=== PATIENT | female | born 1950 | race Caucasian/White ===

== ENCOUNTER 2022-05-20 12:01 | Emergency (ER) | payer BC, MEDICARE | END 2022-05-20 14:45 | disposition home or self-care (01) | LOC: JD.ED 12:01 | DX: S52.601A Unspecified fracture of lower end of right ulna, initial encounter for closed fracture (principal); W23.0XXA Caught, crushed, jammed, or pinched between moving objects, initial encounter | CPT/HCPCS: 29125; 73090-26-RT; 73090-RT; 99283 ==

== ENCOUNTER 2022-05-27 13:48 | Emergency (ER) | payer BC, MEDICARE | END 2022-05-27 16:22 | disposition home or self-care (01) | LOC: JD.ED 13:48 | DX: R55 Syncope and collapse (principal) | CPT/HCPCS: 36415; 80053; 85025; 93005; 99284 ==

== ENCOUNTER 2022-06-08 15:00 | Emergency (ER) | payer BC, MEDICARE | END 2022-06-08 17:38 | disposition home or self-care (01) | LOC: JD.ED 15:00 | DX: R04.0 Epistaxis (principal) | CPT/HCPCS: 30901; 99283 ==

== ENCOUNTER 2022-07-14 17:15 | Emergency (ER) | payer BC, MEDICARE ==
[2022-07-14] MEDS ORDERED: Oxymetazoline 0.05% Nasal Spray 30 ML Bottle NAS ONE (17:41)
== END 2022-07-14 18:59 | disposition home or self-care (01) ==
LOC: JD.ED 17:15
DX: R04.0 Epistaxis (principal)
CPT/HCPCS: 30901; 36415; 80053; 85025; 85610; 85730; 99283; A9270; 99282

== ENCOUNTER 2024-01-01 09:15 | Day surgery (SDC) | payer BC, MEDICARE ==
[~2024-01-01 09:15] MED LIST: Sodium Chloride 0.9% 10 ML Syringe FLUSH PRN; Sodium Chloride 0.9% 10 ML Syringe FLUSH SCH
[2024-01-01] MEDS: Lactated Ringers 1,000 ML IV SCH (09:30)
[2024-01-01] MEDS ORDERED: Midazolam 1 MG/ML 2 ML SDV ONE (10:23)
[2024-01-01] MEDS ORDERED: fentaNYL 250 MCG/5 ML SDV ONE (10:23)
[2024-01-01] MEDS ORDERED: Ondansetron 4 MG/2 ML SDV IVPUSH PRN (10:23)
[2024-01-01] MEDS ORDERED: fentaNYL 100 MCG/2 ML SDV ONE (10:24)
[2024-01-01] MEDS ORDERED: Propofol 200 MG/20 ML SDV ONE ×2 (10:24)
[2024-01-01] MEDS ORDERED: Lidocaine 1% 2 ML ONE (10:25)
== END 2024-01-01 12:20 | disposition home or self-care (01) ==
LOC: JD.SDS 09:15
PROVIDERS: ATTEND Surgery
DX: K31.89 Other diseases of stomach and duodenum (principal); K92.1 Melena; D64.9 Anemia, unspecified; K27.9 Peptic ulcer, site unspecified, unspecified as acute or chronic, without hemorrhage or perforation; K57.30 Diverticulosis of large intestine without perforation or abscess without bleeding; K64.8 Other hemorrhoids; K64.4 Residual hemorrhoidal skin tags; Z79.899 Other long term (current) drug therapy
CPT/HCPCS: 43239; 45378; 88305; J2250; J2704; J3010; J7120; 00813; 99100; J3490